=== PATIENT | male | born 1995 | race Caucasian/White ===

== ENCOUNTER 2020-08-20 20:26 | Observation (INO) | payer BC, OTHER ==
[~2020-08-20] VITALS: Ht 177.8 cm; Wt 72.5 kg
[2020-08-20 20:56] LABS: HEMATOCRIT 48 % (40-54); HEMOGLOBIN 16.8 G/DL (13.3-17.7); MEAN CORPUSCULAR HEMOGLOBIN 31 PG (25-34); MEAN CORPUSCULAR HGB CONC 35 G/DL (32-36); MEAN CORPUSCULAR VOLUME 90 FL (80-99); MEAN PLATELET VOLUME 8.6 FL (7.4-10.4); PLATELET COUNT 273 10^3/uL (130-400); WHITE BLOOD COUNT 7.8 10^3/uL (4.3-11.0)
[2020-08-20 20:57] LABS: BASOPHILS # (AUTO) 0.1 10^3/uL (0.0-0.1); BASOPHILS % (AUTO) 1 % (0-10); EOSINOPHILS # (AUTO) 0.3 10^3/uL (0.0-0.3); EOSINOPHILS % (AUTO) 3 % (0-10); LYMPHOCYTES # (AUTO) 2.8 X 10^3 (1.0-4.0); LYMPHOCYTES % (AUTO) 36 % (12-44); MONOCYTES # (AUTO) 0.8 X 10^3 (0.0-1.0); MONOCYTES % (AUTO) 10 % (0-12); NEUTROPHILS # (AUTO) 3.9 X 10^3 (1.8-7.8); NEUTROPHILS % (AUTO) 50 % (42-75)
--- NOTE | 2020-08-20 21:04 | Diagnostic Imaging Report ---
INDICATION: Chest pain EXAM: Frontal chest obtained at 08:40 p.m. Heart and mediastinal silhouette are normal in appearance. The lungs are clear. There is no pneumothorax or pleural fluid. IMPRESSION: Negative chest. Dictated by: Dictated on workstation # [id number]
[2020-08-20 21:14] LABS: BILIRUBIN,TOTAL 0.3 MG/DL (0.1-1.0); BUN/CREATININE RATIO 11; CALCIUM 10.1 MG/DL (8.5-10.1); CARBON DIOXIDE 27 MMOL/L (21-32); CHLORIDE 99 MMOL/L (98-107); CREATININE SERUM 0.99 MG/DL (0.60-1.30); GFR ESTIMATED > 60; GLUCOSE 93 MG/DL (70-105); SODIUM 137 MMOL/L (135-145)
[2020-08-20 21:15] LABS: ALANINE AMINOTRANSFERASE 14 U/L (0-55); ALKALINE PHOSPHATASE 65 U/L (40-136); TOTAL PROTEIN 7.7 GM/DL (6.4-8.2)
[2020-08-20] MEDS ORDERED: FAMOTIDINE 20MG/2ML IV (PEPCID) IVP ONE (22:15)
--- NOTE | 2020-08-20 22:35 | ED Cardiac General ---
History of Present Illness General Chief Complaint: Chest Pain Stated Complaint: PRESSURE IN CHEST AND BACK Nursing Triage Note: pt states chest pain started this am upon getting out of bed, pt thought it was heartburn, pt states tonight around 5 pm pain moved into back. pt took tums with no relief Source: patient History of Present Illness Date Seen by Provider: August 20, 2020 Time Seen by Provider: 20:26 Initial Comments Patient is a 24-year-old male who presents with epigastric/substernal chest pain starting at 1030 this morning lasting approximately 1 hour. Patient describes pain is intense, with heaviness and residual burning. He also reports diffuse pain across his lower thorax and in between his shoulder blades. Chest and back pain were most pronounced with minimal exertion. Symptoms were not associated with nausea, shortness of breath, or abdominal pain. No bloody stools or dark tarry stools. This evening, the patient's symptoms returned again after waking from a nap. He does report history of reflux but states he has not had reflux like his current symptoms. He is not on medications and has not trialed any antacids. He does drink caffeine daily and on average 4-5 beers at night. Hi story of tachyarrhythmia. No family history of early coronary disease. No other acute symptoms or complaints. 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 Associated Systoms: Other Allergies and Home Medications Allergies Coded Allergies: amoxicillin (Unverified Allergy, Unknown, 08/20/20) Patient Home Medication List Home Medication List Reviewed: Yes Review of Systems Review of Systems Constitutional: see HPI EENTM: See HPI Respiratory: See HPI Cardiovascular: See HPI Gastrointestinal: See HPI Genitourinary: See HPI Musculoskeletal: see HPI Skin: see HPI Psychiatric/Neurological: See HPI Endocrine: See HPI Hematologic/Lymphatic: See HPI All Other Systems Reviewed Negative Unless Noted: Yes Past Sggjzlk-Fskhmi-Paewlq Hx Past Med/Social Hx: Reviewed Nursing Past Med/Soc Hx Patient Social History Alcohol Use: Regular Use Alcohol Beverage of Choice: Beer Smoking Status: Current Everyday Smoker Type Used: Cigarettes 2nd Hand Smoke Exposure: No Recent Infectious Disease Expo: No Recent Hopitalizations: No Seasonal Allergies Seasonal Allergies: No Past Medical History Surgeries: Yes Orthopedic Respiratory: No Cardiac: No Neurological: No Genitourinary: No Gastrointestinal: No Musculoskeletal: No Endocrine: No HEENT: No Cancer: No Psychosocial: No Integumentary: No Blood Disorders: No Adverse Reaction/Blood Tranf: No Physical Exam Vital Signs Vital Signs - First Documented Capillary Refill : Less Than 3 Seconds Height, Weight, BMI Height: '" Weight: lbs. oz. kg; 22.00 BMI Method: General Appearance: No Apparent Distress, Anxious HEENT: PERRL/EOMI, Normal ENT Inspection, Pharynx Normal Neck: Full Range of Motion, Normal Inspection, Supple Respiratory: Lungs Clear Cardiovascular: Regular Rate, Rhythm Gastrointestinal: Non Tender, Soft Neurologic/Psychiatric: Alert, Oriented x3, No Motor/Sensory Deficits, Normal Mood/Affect, rn long term care II-XII Norm as Tested Focused Exam Sepsis Stage: Ruled Out Progress/Results/Core Measures Results/Orders Lab Results Laboratory Tests Test 08/20/20 20:42 Range/Units White Blood Count 7.8 4.3-11.0 10^3/uL Red Blood Count 5.37 4.35-5.85 10^6/uL Hemoglobin 16.8 13.3-17.7 G/DL Hematocrit 48 40-54 % Mean Corpuscular Volume 90 80-99 FL Mean Corpuscular Hemoglobin 31 25-34 PG Mean Corpuscular Hemoglobin Concent 35 32-36 G/DL Red Cell Distribution Width 12.2 10.0-14.5 % Platelet Count 273 130-400 10^3/uL Mean Platelet Volume 8.6 7.4-10.4 FL Immature Granulocyte % (Auto) 0 % Neutrophils (%) (Auto) 50 42-75 % Lymphocytes (%) (Auto) 36 12-44 % Monocytes (%) (Auto) 10 0-12 % Eosinophils (%) (Auto) 3 0-10 % Basophils (%) (Auto) 1 0-10 % Neutrophils # (Auto) 3.9 1.8-7.8 X 10^3 Lymphocytes # (Auto) 2.8 1.0-4.0 X 10^3 Monocytes # (Auto) 0.8 0.0-1.0 X 10^3 Eosinophils # (Auto) 0.3 0.0-0.3 10^3/uL Basophils # (Auto) 0.1 0.0-0.1 10^3/uL Immature Granulocyte # (Auto) 0.0 0.0-0.1 10^3/uL D-Dimer 0.28 0.00-0.49 UG/ML Sodium Level 137 135-145 MMOL/L Potassium Level 4.0 3.6-5.0 MMOL/L Chloride Level 99 98-107 MMOL/L Carbon Dioxide Level 27 21-32 MMOL/L Anion Gap 11 5-14 MMOL/L Blood Urea Nitrogen 11 7-18 MG/DL Creatinine 0.99 0.60-1.30 MG/DL Estimat Glomerular Filtration Rate > 60 BUN/Creatinine Ratio 11 Glucose Level 93 70-105 MG/DL Calcium Level 10.1 8.5-10.1 MG/DL Corrected Calcium 8.5-10.1 MG/DL Total Bilirubin 0.3 0.1-1.0 MG/DL Aspartate Amino Transf (AST/SGOT) 20 5-34 U/L Alanine Aminotransferase (ALT/SGPT) 14 0-55 U/L Alkaline Phosphatase 65 40-136 U/L Troponin I < 0.30 <0.30 NG/ML C-Reactive Protein < 0.30 <0.50 MG/DL Total Protein 7.7 6.4-8.2 GM/DL Albumin 5.0 H 3.2-4.5 GM/DL Lipase 23 8-78 U/L My Orders Orders - STEPHANIE LYNNE DO Chest 1 View Ap/Pa Only (08/20/20 20:47) Cbc With Automated Diff (08/20/20 20:41) Comprehensive Metabolic Panel (08/20/20 20:41) Troponin I Fs (08/20/20 20:41) Ekg-Prn For Chest Pain Or Rhyt (08/20/20 20:41) Crp Fs (08/20/20 20:41) Fibrin Degradation Products (08/20/20 21:20) Lipase (08/20/20 21:21) Troponin I Fs (08/20/20 22:07) Famotidine Injection (Pepcid Injection) (08/20/20 22:15) Enoxaparin Injection (Lovenox Injection) (08/20/20 22:45) Clopidogrel Tablet (Plavix Tablet) (08/20/20 22:45) Metoprolol Succinate (Xl) Tab (Toprol Xl (5/4/21 22:45) Medications Given in ED Current Medications Medications Dose Ordered Sig/Ingrid Route Start Time Stop Time Status Last Admin Dose Admin Famotidine 20 mg ONCE ONCE IVP 08/20/20 22:15 08/20/20 22:16 DC 08/20/20 22:17 20 MG Vital Signs/I&O 08/20/20 08/20/20 20:43 20:43 Temp 37.0 Pulse 89 Resp 16 B/P (MAP) 138/80 (99) Pulse Ox 98 O2 Delivery Room Air Room Air Blood Pressure Mean: 99 Departure Communication (Admissions) EKG: Date 08/20/2000, 2030: Sinus rhythm, rate 71, OR 125, QTc 400, right bundle branch block, e ST elevation in leads II, aVF,. Hyperacute T waves in anterior leads. No comparison EKG available. Chest x-ray: No acute cardiopulmonary disease. Patient symptom-free in the emergency department. EKG is concerning for possible underlying coronary disease. Initial troponin negative. Repeat troponin pending. Case, labs, EKG reviewed in detail with Dr. Yates on-call for cardiology at [facility]. Recommendations are for loading dose of Plavix, aspirin, Lovenox, beta-ranjit and n.p.o. after clear liquid breakfast morning with anticipated stress test and or possible heart cath. Dr. Crystal agrees to admit to hospital service cardiac stepdown unit. Impression Primary Impression: Acute coronary syndrome Disposition: 01 HOME, SELF-CARE Condition: Stable Admissions Decision to Admit Reason: Admit from ER (General) Decision to Admit/Date: August 20, 2020 Time/Decision to Admit Time: 22:40 Transfer Method of Transfer: EMS STEPHANIE LYNNE DO August 20, 2020 22:35
[2020-08-20] MEDS ORDERED: CLOPIDOGREL 300 MG (PLAVIX) TABLET PO ONE (22:45)
[2020-08-20] MEDS ORDERED: meTOproloL SUCCINATE 50 MG (TOPROL XL) TAB PO SCH (22:45)
[2020-08-20] MEDS ORDERED: ENOXAPARIN 80 MG/0.8 ML (LOVENOX) SYR SC ONE (22:45)
[2020-08-20] MEDS ORDERED: ASPIRIN 81 MG CHEW (CHILDREN'S ASA) PO ONE (23:00)
[2020-08-21 00:05] VITALS: BP 117/79
[2020-08-21] MEDS ORDERED: CATHETER FLUSH 10 ML SYR IV PRN (03:00)
[2020-08-21 03:37] LABS: BASOPHILS # (AUTO) 0.1 10^3/uL (0.0-0.1); BASOPHILS % (AUTO) 1 % (0-10); EOSINOPHILS # (AUTO) 0.2 10^3/uL (0.0-0.3); EOSINOPHILS % (AUTO) 3 % (0-10); HEMATOCRIT 48 % (40-54); HEMOGLOBIN 16.1 g/dL (13.3-17.7); LYMPHOCYTES % (AUTO) 42 % (12-44); MEAN CORPUSCULAR HEMOGLOBIN 31 pg (25-34); MEAN CORPUSCULAR HGB CONC 34 g/dL (32-36); MEAN CORPUSCULAR VOLUME 91 fL (80-99); MEAN PLATELET VOLUME 8.6 fL (9.0-12.2); MONOCYTES # (AUTO) 0.6 10^3/uL (0.0-1.0); MONOCYTES % (AUTO) 9 % (0-12); NEUTROPHILS # (AUTO) 3.1 10^3/uL (1.8-7.8); NEUTROPHILS % (AUTO) 44 % (42-75); PLATELET COUNT 229 10^3/uL (130-400)
[2020-08-21 03:47] LABS: ALBUMIN 4.5 GM/DL (3.2-4.5); CHLORIDE 102 MMOL/L (98-107); POTASSIUM 3.9 MMOL/L (3.6-5.0); SODIUM 139 MMOL/L (135-145)
[2020-08-21 03:48] LABS: CALCIUM 9.4 MG/DL (8.5-10.1)
[2020-08-21 03:49] LABS: GLUCOSE 112 MG/DL (70-105); TOTAL PROTEIN 7.3 GM/DL (6.4-8.2)
[2020-08-21 03:51] LABS: BILIRUBIN,TOTAL 0.4 MG/DL (0.1-1.0); CARBON DIOXIDE 27 MMOL/L (21-32)
[2020-08-21 03:53] LABS: ALKALINE PHOSPHATASE 56 U/L (40-136); CREATININE SERUM 0.94 MG/DL (0.60-1.30); GFR ESTIMATED > 60
[2020-08-21 03:54] LABS: BUN/CREATININE RATIO 11
[2020-08-21 03:56] LABS: ALANINE AMINOTRANSFERASE 15 U/L (0-55)
[2020-08-21] MEDS: CATHETER FLUSH 10 ML SYR IV SCH ×2 (06:18→09:50)
--- NOTE | 2020-08-21 08:34 | Consultation-Cardiology ---
HPI-Cardiology Cardiology Consultation: Date of Consultation 08/21/20 Time Seen by a Provider: 08:10 Date of Admission 08-20-20 Attending Physician Hui Crystal MD Admitting Physician Lacey,Local Physician Consulting Physician Sunny Yates MD HPI: Chief Complaint: Chest pain Mr. Ag is a 24 yr old male admitted to [facility] from the ED with c/o CP. He reports he woke up yesterday morning with heartburn which lasted all day. He reports he ate dinner last night, went out to smoke and had chest heaviness, pressure across his chest which radiated into his shoulder blades and down into his back. He reports the discomfort was worse with movement. At the prompting of his girlfriend he came to the ED. He reports by the time he got to the ED the pain has resolved and has not returned. He reports he was seen in [place] by a bale sewer several years ago for a "heart rhythm issue" however, he does not know the details. He denies having any procedures, f/u or medications for the issue. He denies any n/v/d. He denies any SOB. He smokes 1 PPD of cigs. He denies any palpitations. He denies any LE swelling. Review of Systems-Cardiology Review of Systems Constitutional: No chills, No fever, No malaise Eyes: No vision change Ears/Nose/Throat: No epistaxis, No recent hearing loss Respiratory: As described under HPI Cardiovascular: As described under HPI Gastrointestinal: No constipation, No diarrhea, No nausea, No vomiting Genitourinary: No dysuria, No hematuria Skin: No rash on exposed areas, No ulcerations on exposed areas Psychiatric/Neurological: No anxiety, No depression, No seizure, No focal weakness, No syncope Hematologic: No bleeding abnormalities All Other Systems Reviewed Negative Unless Noted: Yes ICO-Ydysop-Czsjhz Hx Patient Social History Smoking Status: Current Everyday Smoker 2nd Hand Smoke Exposure: No Have you traveled recently?: No Alcohol Use?: Yes Pt feels they are or have been: No Tobacco type used: Cigarettes Past Medical History PMH As described under Assessment. Family Medical History Family Medical History: No reported family h/o CAD Allergies and Home Medications Allergies Coded Allergies: amoxicillin (Unverified Allergy, Unknown, 08/20/20) Physical Exam-Cardiology Physical Exam Vital Signs/I&O 08/21/20 08/21/20 08/21/20 08/21/20 00:05 00:40 01:07 01:14 Temp 36.7 Pulse 67 61 58 Resp 12 16 18 B/P (MAP) 117/79 116/70 (85) 117/71 (86) Pulse Ox 97 99 97 99 O2 Delivery Room Air Room Air Room Air Room Air 08/21/20 08/21/20 08/21/20 08/21/20 01:14 01:17 01:21 01:36 Pulse 66 59 56 Resp 18 16 B/P (MAP) 114/72 (86) 108/69 (82) Pulse Ox 99 99 98 O2 Delivery Room Air Room Air Room Air 08/21/20 08/21/20 08/21/20 08/21/20 01:51 05:14 05:14 06:53 Temp 36.4 Pulse 58 56 58 Resp 16 16 B/P (MAP) 104/67 (79) 95/60 (72) Pulse Ox 99 99 98 O2 Delivery Room Air Room Air Room Air 08/21/20 08/21/20 08:16 09:00 Temp 35.7 Pulse 80 Resp 16 B/P (MAP) 111/71 (84) Pulse Ox 95 100 O2 Delivery Room Air Room Air Capillary Refill : Less Than 3 Seconds Constitutional: AAO x 3, well-developed, well-nourished HEENT: PERRL, hearing is well preserved, oral hygience is good Neck: No carotid bruit; carotid pulses are 2 + bilaterally Respiratory: No accessory muscle use, No respiratory distress; chest expansion is symmetric, chest is bilaterally symmetric, lungs clear to auscultation Cardiovascular: regular rate-rhythm; No JVD; S1 and S2 Gastrointestinal: No tender; soft, round, audible bowel sounds Extremities: no lower extremity edema bilateral Neurologic/Psychiatric: grossly intact (moves all extremities) Skin: No rash on exposed areas, No ulcerations on exposed areas Data Review Labs Laboratory Tests 08/20/20 20:42: White Blood Count 7.8, Red Blood Count 5.37, Hemoglobin 16.8, Hematocrit 48, Mean Corpuscular Volume 90, Mean Corpuscular Hemoglobin 31, Mean Corpuscular Hemoglobin Concent 35, Red Cell Distribution Width 12.2, Platelet Count 273, Mean Platelet Volume 8.6, Immature Granulocyte % (Auto) 0, Neutrophils (%) (Auto) 50, Lymphocytes (%) (Auto) 36, Monocytes (%) (Auto) 10, Eosinophils (%) (Auto) 3, Basophils (%) (Auto) 1, Neutrophils # (Auto) 3.9, Lymphocytes # (Auto) 2.8, Monocytes # (Auto) 0.8, Eosinophils # (Auto) 0.3, Basophils # (Auto) 0.1, Immature Granulocyte # (Auto) 0.0, D-Dimer 0.28, Sodium Level 137, Potassium Level 4.0, Chloride Level 99, Carbon Dioxide Level 27, Anion Gap 11, Blood Urea Nitrogen 11, Creatinine 0.99, Estimat Glomerular Filtration Rate > 60, BUN/Creatinine Ratio 11, Glucose Level 93, Calcium Level 10.1, Corrected Calcium , Total Bilirubin 0.3, Aspartate Amino Transf (AST/SGOT) 20, Alanine Aminotransferase (ALT/SGPT) 14, Alkaline Phosphatase 65, Troponin I < 0.30, C- Reactive Protein < 0.30, Total Protein 7.7, Albumin 5.0H, Lipase 23 08/20/20 22:45: Troponin I < 0.30 08/21/20 03:25: White Blood Count 7.0, Red Blood Count 5.28, Hemoglobin 16.1, Hematocrit 48, Mean Corpuscular Volume 91, Mean Corpuscular Hemoglobin 31, Mean Corpuscular Hemoglobin Concent 34, Red Cell Distribution Width 12.0, Platelet Count 229, Mean Platelet Volume 8.6L, Immature Granulocyte % (Auto) 0, Neutrophils (%) (Auto) 44, Lymphocytes (%) (Auto) 42, Monocytes (%) (Auto) 9, Eosinophils (%) (Auto) 3, Basophils (%) (Auto) 1, Neutrophils # (Auto) 3.1, Lymphocytes # (Auto) 3.0, Monocytes # (Auto) 0.6, Eosinophils # (Auto) 0.2, Basophils # (Auto) 0.1, Immature Granulocyte # (Auto) 0.0, Sodium Level 139, Potassium Level 3.9, Chloride Level 102, Carbon Dioxide Level 27, Anion Gap 10, Blood Urea Nitrogen 10, Creatinine 0.94, Estimat Glomerular Filtration Rate > 60, BUN/Creatinine Ratio 11, Glucose Level 112H, Calcium Level 9.4, Corrected Calcium 9.0, Total Bilirubin 0.4, Aspartate Amino Transf (AST/SGOT) 18, Alanine Aminotransferase (ALT/SGPT) 15, Alkaline Phosphatase 56, Troponin I < 0.028, Total Protein 7.3, Albumin 4.5 Radiology NAME: REGGIE AG MED REC#: [id number] PT STATUS: REG ER : 1995 PHYSICIAN: STEPHANIE LYNNE DO ADMIT DATE: 08/20/20/ER FS Signed Date of Exam:08/20/20 CHEST 1 VIEW AP/PA ONLY INDICATION: Chest pain EXAM: Frontal chest obtained at 08:40 p.m. Heart and mediastinal silhouette are normal in appearance. The lungs are clear. There is no pneumothorax or pleural fluid. IMPRESSION: Negative chest. Dictated by: Dictated on workstation # [id number] Dict: 08/20/202055 Trans: 08/20/202135 [facility] [id number] Interpreted by: LANI JENNINGS MD Electronically signed by: LANI JENNINGS MD 08/20/202135 A/P-Cardiology Assessment/Admission Diagnosis Non-specific chest pain of undetermined etiology - no evidence of ACS EKG somewhat abnormal, but unchanged from previous EKG, including EKG from 05-05-2018 Tobaccoism - cessation advised ETOH usage - 4-5 beers per night Reports h/o "heart rhythm issue" for which he has been seen by Dr. Benitez of cardiology at [facility] in [place], [place] Discussion and Recomendations EKG is somewhat abnormal, but unchanged from the previous EKG or the EKG of 05-05-2018 Advise smoking cessation Advise alcohol cessation Echocardiogram today to eval structure and function Advise out pt MPI We have reviewed his records from [facility] Monitor lab closely Further recs will be based on his hospital course We would like to thank medical services for this consult Clinical Quality Measures AMI/AHF: ASA po Prior to arrival: Yes ACE GARCIA August 21, 2020 08:34
[2020-08-21] MEDS ORDERED: CLOPIDOGREL 75 MG (PLAVIX) TABLET PO SCH (09:00)
[2020-08-21] MEDS ORDERED: FAMOTIDINE 20MG/2ML IV (PEPCID) IVP SCH (09:00)
[2020-08-21] MEDS ORDERED: ASPIRIN 81 MG CHEW (CHILDREN'S ASA) PO SCH (09:00)
[2020-08-21] MEDS ORDERED: PANTOPRAZOLE 40 MG (PROTONIX) VIAL IV SCH (09:00)
[2020-08-21] MEDS ORDERED: meTOproloL SUCCINATE 50 MG (TOPROL XL) TAB PO SCH (09:00)
[2020-08-21] MEDS ORDERED: PANTOPRAZOLE 40 MG (PROTONIX) VIAL ONE (09:40)
[2020-08-21] MEDS: ENOXAPARIN 80 MG/0.8 ML (LOVENOX) SYR SC SCH ×2 (09:49→10:04)
--- NOTE | 2020-08-21 10:11 | Short Stay Summary-Hospitalist ---
History of Present Illness HPI/Chief Complaint Pt is a 24yoCM with a PMH of a tachyarrhythmia who presented to the ER due to chest pain. He states that it started yesterday morning around 1030 and was very intense. It lasted for about an hour and then resolved. He described it at epigastric and substernal. It was worsened with exertion but he did not have any diaphoresis, nausea, or shortness of breath. This did not feel similar to his previous issues with his arrhythmia. He currently has no symptoms at this time and is about to get an echo. Source: patient Date Seen 08/21/20 Time Seen by a Provider: 10:05 Attending Physician Hui Crystal MD PCP No,Local Physician Referring Physician Date of Admission August 21, 2020 at 00:50 Home Medications & Allergies Home Medications Reviewed patient Home Medication Reconciliation performed by pharmacy medication reconciliations pet care technician and/or nursing. Patients Allergies have been reviewed. Allergies Allergies Coded Allergies amoxicillin (Unverified Allergy, Unknown, 08/20/20) Past Lpesifj-Rzordk-Ztquun Hx Past Med/Social Hx: Reviewed Nursing Past Med/Soc Hx Patient Social History Alcohol Use: Regular Use Alcohol Beverage of Choice: Beer Recreational Drug Use: No Smoking Status: Current Everyday Smoker Cigaretts per day: 20 Type Used: Cigarettes 2nd Hand Smoke Exposure: No Recent Foreign Travel: No Contact w/other who traveled: No Recent Hopitalizations: No Recent Infectious Disease Expo: No Seasonal Allergies Seasonal Allergies: No Past Medical History Surgeries: Orthopedic Cardiac: Irregular Heartbeat, Palpitations History of Blood Disorders: No Adverse Reaction to Blood Ramírez: No Family History Reviewed Nursing Family Hx No Pertinent Family Hx Review of Systems Constitutional: No chills, No fever EENTM: no symptoms reported Respiratory: no symptoms reported Cardiovascular: see HPI, chest pain Gastrointestinal: No abdominal pain, No constipation; heartburn; No nausea, No vomiting Genitourinary: no symptoms reported Musculoskeletal: no symptoms reported Skin: no symptoms reported Psychiatric/Neurological: No Symptoms Reported Physical Exam Physical Exam Vital Signs Vital Signs - First Documented Capillary Refill : Less Than 3 Seconds Height, Weight, BMI Height: '" Weight: lbs. oz. kg; 22.93 BMI Method: General Appearance: No Apparent Distress, WD/WN, Thin HEENT: PERRL/EOMI, Moist Mucous Membranes; No Scleral Icterus (L), No Scleral Icterus (R) Neck: Normal Inspection, Supple Respiratory: Lungs Clear, No Accessory Muscle Use, No Respiratory Distress Cardiovascular: Regular Rate, Rhythm, No Edema, No Murmur, Normal Peripheral Pulses Gastrointestinal: Normal Bowel Sounds, Non Tender, Soft; No Guarding, No Tenderness Neurologic/Psychiatric: Alert, Oriented x3, Normal Mood/Affect Skin: Normal Color, Warm/Dry Results Results/Procedures Labs Laboratory Tests 08/20/20 20:42 08/21/20 03:25 Patient resulted labs reviewed. Imaging: Reviewed Imaging Report [facility] [place] [place] NAME: REGGIE [facility]IA [facility] REC#: [id number] PT STATUS: REG ER : 1995 PHYSICIAN: STEPHANIE LYNNE DO ADMIT DATE: 08/20/20/ER FS Signed Date of Exam:08/20/20 CHEST 1 VIEW AP/PA ONLY INDICATION: Chest pain EXAM: Frontal chest obtained at 08:40 p.m. Heart and mediastinal silhouette are normal in appearance. The lungs are clear. There is no pneumothorax or pleural fluid. IMPRESSION: Negative chest. Dictated by: Dictated on workstation # [id number] Dict: 08/20/202055 Trans: 08/20/202135 [facility] [id number] Interpreted by: LANI JENNINGS MD Electronically signed by: LANI JENNINGS MD 08/20/202135 Short Stay Diagnosis Discharge Diagnosis-Short Stay Admission Diagnosis Chest pain Final Discharge Diagnosis Chest pain Conclusion Plan Chest pain Admitted for observation Symptoms resolved Troponins negative x3 Monitored on telemetry Records requested and EKG unchanged from previous one in 2019 Cardiology consulted, appreciate recs Echo with preserved EF Requesting DC home, will DC home with outpatient stress test tomorrow per Dr Yates Tobacco abuse Recommended cessation, he states he is not ready Diagnosis/Problems Diagnosis/Problems (1) Chest pain Clinical Quality Measures AMI/AHF: ASA po Prior to arrival: Yes MICHAEL FITZPATRICK MD August 21, 2020 10:11
[2020-08-21] MEDS ORDERED: PANT40TA52 PO ×2 (10:30)
[2020-08-21] MEDS ORDERED: ASPI-999 PO ×2 (10:30)
--- NOTE | 2020-08-21 10:33 | Discharge Inst-Simple/Standard ---
Discharge Inst-Standard Discharge Medications New, Converted or Re-Newed RX: Transmitted to Pharmacy Patient Instructions/Follow Up Plan of Care/Instructions/FU: Please continue to take your medications as written. Please follow up with your primary care doctor to follow up this hospital stay and with Dr Yates for your stress test tomorrow as scheduled. Activity as Tolerated: Yes Discharge Diet: No Restrictions Return to The Hospital For: Chest pain, shortness of breath, palpitations, passing out, fever, if you feel you are getting worse. MICHAEL FITZPATRICK MD August 21, 2020 10:33
--- NOTE | 2020-08-21 12:39 | Consultation-Cardiology ---
HPI-Cardiology Cardiology Consultation: Date of Consultation 08/21/20 Time Seen by a Provider: 09:30 Date of Admission Attending Physician Hui Crystal MD Admitting Physician No,Local Physician Consulting Physician HERSON LATIF MD, MA, FACP, FACC, [facility], CCDS HPI: Chief Complaint: CC: Chest pain HPI Mr. Ag is a 24 yr old male admitted to [facility] from the ED with c/o CP. He reports he woke up yesterday morning with heartburn which lasted all day. He reports he ate dinner last night, went out to smoke and had chest heaviness, pressure across his chest which radiated into his shoulder blades and down into his back. He reports the discomfort was worse with movement. At the prompting of his girlfriend he came to the ED. He reports by the time he got to the ED the pain has resolved and has not returned. He reports he was seen in [place] by a credit reference clerk several years ago for a "heart rhythm issue" however, he does not know the details. He denies having any procedures, f/u or medications for the issue. He denies any n/v/d. He denies any SOB. He smokes 1 PPD of cigs. He denies any palpitations. He denies any LE swelling. Review of Systems-Cardiology Review of Systems Constitutional: No chills, No fever, No malaise Eyes: No vision change Ears/Nose/Throat: No epistaxis, No recent hearing loss Respiratory: As described under HPI Cardiovascular: As described under HPI Gastrointestinal: No constipation, No diarrhea, No nausea, No vomiting Genitourinary: No dysuria, No hematuria Skin: No rash on exposed areas, No ulcerations on exposed areas Psychiatric/Neurological: No anxiety, No depression, No seizure, No focal weakness, No syncope Hematologic: No bleeding abnormalities All Other Systems Reviewed Negative Unless Noted: Yes [id number] Hx Patient Social History Smoking Status: Current Everyday Smoker 2nd Hand Smoke Exposure: No Have you traveled recently?: No Alcohol Use?: Yes Pt feels they are or have been: No Tobacco type used: Cigarettes Past Medical History PMH As described under Assessment. Family Medical History Family Medical History: No reported family h/o CAD Allergies and Home Medications Allergies Coded Allergies: amoxicillin (Unverified Allergy, Unknown, 08/20/20) Home Medications Aspirin 81 Mg Tab.chew, 81 MG PO DAILY Prescribed by: MICHAEL DIAZ on 08/21/20 1119 Pantoprazole Sodium 40 Mg Tablet.dr, 40 MG PO DAILY Prescribed by: MICHAEL DIAZ on 08/21/20 1119 Patient Home Medication List Home Medication List Reviewed: Yes Physical Exam-Cardiology Physical Exam Vital Signs/I&O 08/21/20 08/21/20 08/21/20 08/21/20 00:40 01:07 01:14 01:14 Temp 36.7 Pulse 61 58 Resp 16 18 B/P (MAP) 116/70 (85) 117/71 (86) Pulse Ox 99 97 99 99 O2 Delivery Room Air Room Air Room Air Room Air 08/21/20 08/21/20 08/21/20 08/21/20 01:17 01:21 01:36 01:51 Pulse 66 59 56 58 Resp 18 16 16 B/P (MAP) 114/72 (86) 108/69 (82) 104/67 (79) Pulse Ox 99 98 99 O2 Delivery Room Air Room Air Room Air 08/21/20 08/21/20 08/21/20 08/21/20 05:14 05:14 06:53 08:16 Temp 36.4 35.7 Pulse 56 58 80 Resp 16 16 B/P (MAP) 95/60 (72) 111/71 (84) Pulse Ox 99 98 95 O2 Delivery Room Air Room Air Room Air 08/21/20 08/21/20 09:00 12:00 B/P (MAP) Pulse Ox 100 O2 Delivery Room Air Capillary Refill : Less Than 3 Seconds Constitutional: AAO x 3, well-developed, well-nourished HEENT: PERRL, hearing is well preserved, oral hygience is good Neck: No carotid bruit; carotid pulses are 2 + bilaterally Respiratory: No accessory muscle use, No respiratory distress; chest expansion is symmetric, chest is bilaterally symmetric, lungs clear to auscultation Cardiovascular: regular rate-rhythm; No JVD; S1 and S2 Gastrointestinal: No tender; soft, round, audible bowel sounds Extremities: no lower extremity edema bilateral Neurologic/Psychiatric: grossly intact (moves all extremities) Skin: No rash on exposed areas, No ulcerations on exposed areas Data Review Labs Laboratory Tests 08/20/20 20:42: White Blood Count 7.8, Red Blood Count 5.37, Hemoglobin 16.8, Hematocrit 48, Mean Corpuscular Volume 90, Mean Corpuscular Hemoglobin 31, Mean Corpuscular Hemoglobin Concent 35, Red Cell Distribution Width 12.2, Platelet Count 273, Mean Platelet Volume 8.6, Immature Granulocyte % (Auto) 0, Neutrophils (%) (Auto) 50, Lymphocytes (%) (Auto) 36, Monocytes (%) (Auto) 10, Eosinophils (%) (Auto) 3, Basophils (%) (Auto) 1, Neutrophils # (Auto) 3.9, Lymphocytes # (Auto) 2.8, Monocytes # (Auto) 0.8, Eosinophils # (Auto) 0.3, Basophils # (Auto) 0.1, Immature Granulocyte # (Auto) 0.0, D-Dimer 0.28, Sodium Level 137, Potassium Level 4.0, Chloride Level 99, Carbon Dioxide Level 27, Anion Gap 11, Blood Urea Nitrogen 11, Creatinine 0.99, Estimat Glomerular Filtration Rate > 60, BUN/Creatinine Ratio 11, Glucose Level 93, Calcium Level 10.1, Corrected Calcium , Total Bilirubin 0.3, Aspartate Amino Transf (AST/SGOT) 20, Alanine Aminotransferase (ALT/SGPT) 14, Alkaline Phosphatase 65, Troponin I < 0.30, C- Reactive Protein < 0.30, Total Protein 7.7, Albumin 5.0H, Lipase 23 08/20/20 22:45: Troponin I < 0.30 08/21/20 03:25: White Blood Count 7.0, Red Blood Count 5.28, Hemoglobin 16.1, Hematocrit 48, Mean Corpuscular Volume 91, Mean Corpuscular Hemoglobin 31, Mean Corpuscular Hemoglobin Concent 34, Red Cell Distribution Width 12.0, Platelet Count 229, Mean Platelet Volume 8.6L, Immature Granulocyte % (Auto) 0, Neutrophils (%) (Auto) 44, Lymphocytes (%) (Auto) 42, Monocytes (%) (Auto) 9, Eosinophils (%) (Auto) 3, Basophils (%) (Auto) 1, Neutrophils # (Auto) 3.1, Lymphocytes # (Auto) 3.0, Monocytes # (Auto) 0.6, Eosinophils # (Auto) 0.2, Basophils # (Auto) 0.1, Immature Granulocyte # (Auto) 0.0, Sodium Level 139, Potassium Level 3.9, Chloride Level 102, Carbon Dioxide Level 27, Anion Gap 10, Blood Urea Nitrogen 10, Creatinine 0.94, Estimat Glomerular Filtration Rate > 60, BUN/Creatinine Ratio 11, Glucose Level 112H, Calcium Level 9.4, Corrected Calcium 9.0, Total Bilirubin 0.4, Aspartate Amino Transf (AST/SGOT) 18, Alanine Aminotransferase (ALT/SGPT) 15, Alkaline Phosphatase 56, Troponin I < 0.028, Total Protein 7.3, Albumin 4.5 Laboratory Tests 08/20/20 20:42 08/21/20 03:25 A/P-Cardiology Assessment/Admission Diagnosis Non-specific chest pain of undetermined etiology - no evidence of ACS EKG somewhat abnormal, but unchanged from previous EKG, including EKG from 05-05-2018 Echo 08/21/20: LVEF 50-55%, PASP 30-35 mmHg Tobaccoism - cessation advised ETOH usage - 4-5 beers per night - advised to quit Reports h/o "heart rhythm issue" for which he has been seen by Dr. Benitez of [place] [facility] in [place], [place] Discussion and Recomendations No evidence of ACS, wishes to go home. We have advised him to return to ER in case of any recurrence of symptoms Stress test advised. He refuses to stay for that. States will have it done as an outpt tomorrow Advise smoking cessation Advise alcohol cessation I discussed his case with Dr Diaz Clinical Quality Measures AMI/AHF: ASA po Prior to arrival: Yes HERSON LATIF MD FACP FAC CCDS August 21, 2020 12:39
[2020-08-22] MEDS ORDERED: PANTOPRAZOLE 40 MG (PROTONIX) TAB PO SCH (09:00)
== END 2020-08-21 12:00 | disposition home or self-care (01) ==
LOC: ER FS 20:28 → CSD 08-21 00:50 → INTOOBSV 08-21 00:50
PROVIDERS: ADMIT Internal Medicine; ATTEND Internal Medicine
DX: R07.9 Chest pain, unspecified (principal); F17.210 Nicotine dependence, cigarettes, uncomplicated; Z88.1 Allergy status to other antibiotic agents; Z79.82 Long term (current) use of aspirin; Z79.899 Other long term (current) drug therapy
CPT/HCPCS: 36415; 71045; 80053 ×2; 83690; 84484 ×2; 85025 ×2; 85379; 86141; 93005 ×2; 93306; 99284; G0378

== ENCOUNTER → 2020-08-22 | Outpatient (CLI) | payer BC, OTHER ==
[~2020-08-22] VITALS: Ht 177 cm; Wt 73.0 kg
[~2020-08-22] MED LIST: ASPI-999 PO; CATHETER FLUSH 10 ML SYR IV PRN; PANT40TA52 PO
[2020-08-22 08:30] VITALS: BP 106/59
--- NOTE | 2020-08-23 12:30 | STRESS TEST ---
DATE OF SERVICE: 08/22/2020 RESTING AND POST EXERCISE TECHNETIUM-99M TETROFOSMIN SPECT CT IMAGING ORDERING PHYSICIAN: Therese Mancilla APRN CLINICAL DIAGNOSIS: Chest discomfort. Baseline images were carried out after injection of 10.94 mCi of technetium-99m Tetrofosmin. This was followed by exercise on a treadmill. Rogelio protocol was employed. After he had attained more than 85% of maximum predicted heart rate, 32 mCi of technetium-99m Tetrofosmin were injected and the exercise was continued for another minute. Test was stopped on account of fatigue. There did not appear to be significant ST segment deviation. There is no ventricular or supraventricular tachycardia was seen. He exercised for a total of 13 minutes and 54 seconds and attained 14.5 METS of workload. Review of images at rest and following stress does not indicate any significant perfusion defects consistent with myocardial ischemia or infarction. Gated images show normal global left ventricular systolic function with normal regional wall motion. Left ventricular ejection fraction is calculated to be 50%. Left ventricular end diastolic volume is 93 mL. TID is absent (1.04). CONCLUSIONS: 1. No evidence of any significant myocardial ischemia or infarction on this study. 2. Normal regional wall motion. 3. Normal global left ventricular systolic function with a calculated ejection fraction of 50%. Job ID: [id number] DocumentID: [id number] Dictated Date: 08/23/2020 10:07:12 [employer] V[employer] Engineer Date: 08/23/2020 12:29:25 Dictated By: HERSON LATIF MD, MA, FACP, FACC, MTDD
== END ==
LOC: CARD 07:15
PROVIDERS: ATTEND Nurse Practitioner Family
DX: R07.89 Other chest pain (principal); R94.31 Abnormal electrocardiogram [ECG] [EKG]
CPT/HCPCS: 78452; 93017; A9502